=== PATIENT | male | born 1995 | race Two or more races ===

== ENCOUNTER 2019-10-20 10:12 | Emergency (ER) | payer OTHER ==
[~2019-10-20] VITALS: Ht 170.2 cm; Wt 99.3 kg
[2019-10-20 10:53] VITALS: BP 129/89
[2019-10-20] MEDS ORDERED: LIDOCAINE 1% HCL (LOCAL ANESTH.) INJ 20ML MDV IJ ONE (11:15)
[2019-10-20] MEDS ORDERED: ACETAMINOPHEN 500 MG TAB PO ONE (11:15)
[2019-10-20] MEDS ORDERED: BACITRACIN TOP OINT 1 UD PKG TOP ONE (11:15)
== END 2019-10-20 12:09 | disposition home or self-care (01) ==
LOC: ER 10:12
DX: S01.111A Laceration without foreign body of right eyelid and periocular area, initial encounter (principal); W22.8XXA Striking against or struck by other objects, initial encounter; Y93.89 Activity, other specified; Y92.89 Other specified places as the place of occurrence of the external cause; Y99.0 Civilian activity done for income or pay
CPT/HCPCS: 12013; 70450; 99284; J2001